=== PATIENT | female | born 1970 | race Caucasian/White ===

== ENCOUNTER 2021-10-10 08:47 | Outpatient (CLI) | payer OTHER, SELFPAY ==
--- NOTE | 2021-10-10 11:00 | NEURO_ITS ---
Impression: # Complains of left hand numbness. # Left moderate Carpal Tunnel Syndrome. # No ulnar neuropathy. # Needle/EMG exam not requested. Nerve Conduction Studies Anti Sensory Summary Table Stim Site NR Peak (ms) P-T Amp (?V) Site1 Site2 Delta-P (ms) Dist (cm) Kapil (m/s) Left Median Anti Sensory (2-3nd Digit) Wrist 3.6 23.8 Wrist 2-3nd Digit 3.6 14.0 39 Wrist 4.1 59.6 Wrist 2-3nd Digit 3.6 14.0 39 Left Radial Anti Sensory (Base 1st Digit) Wrist 1.7 19.8 Wrist Base 1st Digit 1.7 0.0 Left Ulnar Anti Sensory (5th Digit) Wrist 2.3 56.8 Wrist 5th Digit 2.3 14.0 61 Motor Summary Table Stim Site NR Onset (ms) O-P Amp (mV) Site1 Site2 Delta-0 (ms) Dist (cm) Kapil (m/s) Left Median Motor (Abd Poll Brev) Wrist 4.5 2.2 Elbow Wrist 4.4 26.0 59 Elbow 8.9 1.9 Left Ulnar Motor (Abd Dig Minimi) Wrist 2.0 7.3 A Elbow Wrist 4.5 27.0 60 A Elbow 6.5 5.9 F Wave Studies NR F-Lat (ms) L-R F-Lat (ms) Left Median (Mrkrs) (Abd Poll Brev) 26.15 Left Ulnar (Mrkrs) (Abd Dig Min) 25.63 MTDD
== END 2021-10-10 08:48 | disposition home or self-care (01) ==
PROVIDERS: PCP Nurse Practitioner; Visit Provider Plastic Surgery
DX: R20.2 Paresthesia of skin (principal); G56.02 Carpal tunnel syndrome, left upper limb
CPT/HCPCS: 95909